=== PATIENT | female | born 1995 | race Caucasian/White ===

== ENCOUNTER 2017-11-04 22:55 | Emergency (ER) | payer OTHER ==
[~2017-11-04] VITALS: Ht 157.5 cm; Wt 50.0 kg
[~2017-11-04 22:55] MED LIST: GUAN1ER PO; RISP0.5T20 PO
[2017-11-04 23:00] VITALS: BP 127/85; PULSE 116; RESP 16; TEMP 98.7; O2SAT 100
[2017-11-04] MEDS ORDERED: CLOB5AER TOPICAL (23:42)
[2017-11-05] MEDS ORDERED: diphenhydrAMINE HCL 50 MG/ML VIAL IV PUSH ONE
[2017-11-05] MEDS ORDERED: methylPREDNISolone SOD SUCC 125 MG/2 ML VIAL IV PUSH ONE
--- NOTE | 2017-11-05 00:09 | PD ---
HPI Chief Complaint: Skin Problem Time Seen by Provider: 23:38 Travel History International Travel<30 days: No Contact w/Intl Traveler<30days: No Traveled to known affect area: No History of Present Illness HPI 22-year-old female presents today with urticarial diffuse rash to her left arm. The patient states that she was seen in urgent care and they diagnosed this as hives. She states that it started yesterday and has progressed and gotten more H he. She denies a fevers, chills. She denies any pain under her arm. She reports it started yesterday as a 4 x 4 circular red urticarial hive. There were vesicles noted on top she states since then they first. She denies any abnormal contact. He does report that it's gotten bigger. She reports that it still is itchy. She states that it moved from her forearm up to her upper arm. The patient reports that she is in a study where she is using a cream on her hands. She states that she has not put the cream over her forearm where the irritation is. She denies any shortness of breath or difficulty swallowing. There are no pulmonary symptoms at all. There are no new vesicles noted. PFSH Past Medical History ADHD: No Asthma: Yes Autoimmune Disease: No Blood Disorders: No Bipolar Disorder: Yes Weight (Kg): 3 Anxiety: Yes Depression: Yes Cancer: No Cardiovascular Problems: No Diabetes: No Diminished Hearing: No Genitourinary: No Headaches: No Musculoskeletal: No Neurologic: No Psychiatric: Yes (Depression, Bipolar, PTSD) Respiratory: No Migraines: No Seizures: No Sickle Cell Disease: No Thyroid Disease: No Ulcer: No ?: Not LMP: 2014 Past Surgical History Section: No Other Surgery: Yes (COLONOSCOPY) Social History Alcohol Use: Yes (OCCASIONALLY) Tobacco Use: No Substance Use: Yes (MARIJUANA) Allergies-Medications (Allergen,Severity, Reaction): Coded Allergies: No Known Allergies (Verified Allergy, Severe, 11/05/17) Reported Meds & Prescriptions Reported Meds & Active Scripts Active Reported Clobetasol Topical (Clobetasol Propionate) 0.05% Foam 1 Applic TOPICAL BID Review of Systems Except as stated in HPI: all other systems reviewed are Neg General / Constitutional: No: Fever HENT: No: Headaches, Neck Stiffness, Neck Pain Cardiovascular: No: Chest Pain or Discomfort Respiratory: No: Cough, Shortness of Breath, Wheezing Gastrointestinal: No: Nausea, Vomiting, Diarrhea, Abdominal Pain Genitourinary: No: Frequency, Dysuria Musculoskeletal: Positive: Edema, No: Weakness, Pain Skin: Positive Rash (vesicles over the left forearm), Positive Itching, Positive Lesions Neurologic: No: Weakness, Dizziness, Headache, Change in Mentation Physical Exam Narrative GENERAL: Well-nourished, well-developed patient, in no acute respiratory distress atraumatic. SKIN: Focused skin assessment warm/dry. HEAD: Normocephalic. EYES: No scleral icterus. No injection or drainage. NECK: Supple, trachea midline. No JVD or lymphadenopathy. CARDIOVASCULAR: Regular rate and rhythm without murmurs, gallops, or rubs. RESPIRATORY: Breath sounds equal bilaterally. No accessory muscle use. GASTROINTESTINAL: Abdomen soft, non-tender, nondistended. MUSCULOSKELETAL: Gemmation patient's left arm, she has a 8 x 4" red area with central vesicles. They appear to be water blisters. There is no purulent drainage. There are excoriations from where the patient has scratched. She also has a satellite lesion in her right biceps area with no vesicles but just redness. She states that it is itchy. There is no lymphadenopathy. There is no lymphangitis. This does not have a cellulitic appearance at this time. NEUROLOGICAL: Awake and alert. Cranial nerves II through XII intact. Motor grossly within normal limits. Five out of 5 muscle strength in all muscle groups. Normal speech. Data Data Last Documented VS Vital Signs Date Time Temp Pulse Resp B/P (MAP) Pulse Ox O2 Delivery O2 Flow Rate FiO2 11/04/17 23:00 98.7 116 16 127/85 (99) 100 Orders Orders Complete Blood Count With Diff (11/04/17 23:53) Blood Culture (11/04/17 23:53) Iv Access Insert/Monitor (11/04/17 23:53) Methylprednisolone So Succ Inj (Solumedr (11/05/17 00:00) Diphenhydramine Inj (Benadryl Inj) (11/05/17 00:00) Labs Laboratory Tests Test 11/05/17 00:15 White Blood Count 11.1 TH/MM3 Red Blood Count 4.26 MIL/MM3 Hemoglobin 13.1 GM/DL Hematocrit 38.1 % Mean Corpuscular Volume 89.6 FL Mean Corpuscular Hemoglobin 30.7 PG Mean Corpuscular Hemoglobin Concent 34.3 % Red Cell Distribution Width 13.1 % Platelet Count 251 TH/MM3 Mean Platelet Volume 8.6 FL Neutrophils (%) (Auto) 72.3 % Lymphocytes (%) (Auto) 18.0 % Monocytes (%) (Auto) 8.5 % Eosinophils (%) (Auto) 0.7 % Basophils (%) (Auto) 0.5 % Neutrophils # (Auto) 8.0 TH/MM3 Lymphocytes # (Auto) 2.0 TH/MM3 Monocytes # (Auto) 0.9 TH/MM3 Eosinophils # (Auto) 0.1 TH/MM3 Basophils # (Auto) 0.1 TH/MM3 CBC Comment DIFF FINAL Differential Comment MDM Medical Decision Making Medical Screen Exam Complete: Yes Emergency Medical Condition: Yes Differential Diagnosis Allergic dermatitis versus zoster versus cellulitis Narrative Course 3-year-old female presents today with complaints of urticarial red rash to the left upper extremity. She states it started with clear color vesicles. She states it became itchy and enlarged. She denies any fevers, chills. She denies any pain. She ports having chickenpox as a child. There is no suspicious contact or new products. She is on a medication trial where she is using a hand cream. She states that the cream has not touched her arm. It appears to be allergic. It appears to have a appearance of a dermatitis he would see with poison oak or poison sammie. She denies any contact with plant products. She's been given 125 mg of Solu-Medrol and 50 mg of IV Benadryl. She 'll be discharged with a prescription for prednisone. It'll start a 60 mg daily for 4 days followed by 40 mg daily for 4 days followed by 20 mg daily for 4 days. She is instructed to call the medication trial and tell them about the rash as I do not think she should use the lotion. She is also instructed to return if she does any fevers, increased blistering, increased rash, or any other reason the concerns her. Recommendation will be that she have a rash check in 24 hours. Diagnosis Primary Impression: left upper extremity dermatitis. Additional Instructions: Benadryl 50 mg every 8 hours 5 days. Rash check in 24 hours. Return if fevers , chills, worse blistering, or any other reason the concerns her. Med/Other Pt SpecificInfo: Prescription(s) given Scripts Prednisone (Prednisone) 20 Mg Tab 20 MG PO DIRECTED, #24 TAB 0 Refills Take 60 MG daily x 4 days, then 40 MG x 4 days, then 20 MG daily x 4 days. Prov: Quintin Barba MD 11/05/17 Disposition: 01 DISCHARGE HOME Condition: Stable Quintin Barba MD Nov 05, 2017 00:09
[2017-11-05 00:53] LABS: BASOPHIL # 0.1 TH/MM3 (0-0.2); BASOPHIL % 0.5 % (0.0-2.0); EOSINOPHIL # 0.1 TH/MM3 (0-0.4); EOSINOPHIL % 0.7 % (0.0-4.0); HEMATOCRIT 38.1 % (35.0-46.0); HEMOGLOBIN 13.1 GM/DL (11.6-15.3); MEAN CELL VOLUME 89.6 FL (80.0-100.0); MEAN CORPUSCULAR HEMOGLOBIN 30.7 PG (27.0-34.0); MEAN CORPUSCULAR HGB CONC 34.3 % (32.0-36.0); MEAN PLATELET VOLUME 8.6 FL (7.0-11.0); MONO % 8.5 % (0.0-8.0); MONOCYTE # 0.9 TH/MM3 (0-0.9); NEUT % 72.3 % (16.0-70.0); PLATELET COUNT 251 TH/MM3 (150-450); RED BLOOD COUNT 4.26 MIL/MM3 (4.00-5.30); RED CELL DISTRIBUTION WIDTH 13.1 % (11.6-17.2); WHITE BLOOD COUNT 11.1 TH/MM3 (4.0-11.0)
[2017-11-05] MEDS ORDERED: PRED20 PO (01:04)
== END 2017-11-05 02:29 | disposition home or self-care (01) ==
LOC: NEPE 22:55
DX: L30.9 Dermatitis, unspecified (principal)
CPT/HCPCS: 85025; 87040; 96374; 96375; 99284; J1200; J2930

== ENCOUNTER 2017-11-06 06:58 | Emergency (ER) | payer OTHER ==
[~2017-11-06] VITALS: Ht 157.5 cm; Wt 50.0 kg
[~2017-11-06 06:58] MED LIST changes: +CLOB5AER TOPICAL; -GUAN1ER PO; +PRED20 PO; -RISP0.5T20 PO
[2017-11-06 06:59] VITALS: BP 117/63; PULSE 84; RESP 18; TEMP 98.4; O2SAT 100
== END 2017-11-06 07:25 | disposition left against medical advice (07) ==
LOC: NEPD 06:58
DX: Z53.21 Procedure and treatment not carried out due to patient leaving prior to being seen by health care provider (principal)
CPT/HCPCS: 99281